=== PATIENT | female | born 1955 | race Caucasian/White ===

== ENCOUNTER 2020-10-03 09:54 | Outpatient (REF) | payer MEDICARE, MEDICAID, SELFPAY | END 2020-10-03 09:55 | disposition home or self-care (01) | LOC: HO.HAP 09:54 | DX: Z46.1 Encounter for fitting and adjustment of hearing aid (principal) | CPT/HCPCS: V5266 ==

== ENCOUNTER 2020-11-07 14:06 | Outpatient (REF) | payer MEDICARE, MEDICAID, SELFPAY ==
--- NOTE | 2020-11-07 | MM_ITS ---
EXAMINATION: MM SCREENING DIGITAL BREAST TOMOSYNTHESIS, BILATERAL CLINICAL INFORMATION: Screening. Asymptomatic. The lifetime risk of breast cancer based on the Tyrer-Cuzick Model is 6%. COMPARISON: Mammography: 03/12/2019, 03/06/2018, 01/23/2017 TECHNIQUE: Digital breast tomosynthesis is performed in both the craniocaudal and mediolateral oblique views along with computer-aided detection (CAD). Synthesized 2D images are generated from the tomosynthesis. FINDINGS: The breasts are almost entirely fatty (ACR BI-RADS breast composition Category a). Background stromal and fibroglandular densities are stable. There is a benign bulky calcification again seen anterior medial left breast. There are some rim calcifications mid outer right breast. There are no significant masses, abnormal calcifications, or other abnormalities. No significant changes from prior studies. MM/MM tomosynthesis screening BI IMPRESSION: No mammographic evidence of malignancy. ASSESSMENT: BI-RADS 2: Benign RECOMMENDATION: Routine annual mammography screening. This patient's information was entered into a reminder system with a target due date for their next mammogram.
== END 2020-11-07 14:07 | disposition home or self-care (01) ==
LOC: HO.MAMMO 14:06
DX: Z12.31 Encounter for screening mammogram for malignant neoplasm of breast (principal)
CPT/HCPCS: 77063; 77067

== ENCOUNTER 2021-01-29 08:54 | Outpatient (REF) | payer MEDICARE, MEDICAID, SELFPAY ==
--- NOTE | 2021-01-29 10:31 | MHC.AU.P13 ---
Adult Audiological Evaluation Date of Visit: 01/29/21 Ice Seller Used: Not Applicable Reason for Appointment: Audiologic re-evaluation due to question of change in hearing ability. It was noticed at the beginning of the appointment Mariah needed speech to be repeated frequently. Mariah was accompanied by her brother for today's appointment. Previous Hearing Test Results: Bilateral moderately-severe to profound sensorineural hearing loss. Ear History: History of Ear Wax Buildup: Both Ears Medical History: Medical History: Developmental Disorder/Delay High Blood Pressure Medical History: Cerebral Palsy, High Cholesterol, Mild Dementia, Vitamin B 12 Deficiency Allergies: Asprin, Ibuprofen, Morphine Medication List: Calcium, Lisinopril, Multivitamin, Simvastatin, Vitamin C, Vitamin D3 Hearing Instrument History- Right Ear: Plumbing Assembler Installer: Modulus Video Model: [employer] i1600 ITE Serial Number: [id number] Battery Size: 13 Repair Warranty: 06/07/2020 Dispensed By: [facility] Date of Fittin05/26/2017 Hearing Instrument History- Left Ear: Plumbing Assembler Installer: Spenser Model: [employer] i1600 ITE Serial Number: [id number] Battery Size: 13 Warranty: 06/07/2020 Dispensed By: [facility] Date of Fittin05/26/2017 Otoscopy: Right Ear: Small amount of non-occluding cerumen Left Ear: Small amount of non-occluding cerumen Tympanometry: Tympanometry performed due to: History of middle ear dysfunction Right Ear: Reduced Middle Ear Compliance (Type As) Left Ear: Reduced Middle Ear Compliance (Type As) Hearing Evaluation: Transducer(s) Used: Insert Earphones Bone Conduction Method: Conventional Audiometry Stimuli Used: Pure Tones Right Ear: Description of Hearing: Moderately-severe to profound sensorineural hearing loss Left Ear: Description of Hearing: Moderately-severe to severe sensorineural hearing loss Speech Recognition Threshold (SRT): Method Used: Monitored Live Voice Stimuli Used: Spondee Words Right Ear: 65 dB HL Left Ear: 65 dB HL Word Discrimination: Method: Monitored Live Voice Word Lists Used: NU-6 Right Ear: 56% at 95 dB HL Left Ear: 60% at 90 dB HL Comparison: Compared to the most recent evaluation: Hearing is stable. Recommendations: Audiological re-evaluation in one year. Hearing aid maintenance performed today. Sound quality of both hearing aids improved following hearing aid cleaning Diagnosis: Primary Diagnosis: H90.3 Bilateral Sensorineural Hearing Loss Services Performed: Comprehensive Audiological Evaluation (CPT 37212) Tympanometry (CPT 36171) Signature: Provider: Gary Trimble, [facility]-A
== END 2021-01-29 08:55 | disposition home or self-care (01) ==
LOC: HO.SH 08:54
PROVIDERS: Visit Provider Internal Medicine
DX: Z46.1 Encounter for fitting and adjustment of hearing aid (principal); H90.3 Sensorineural hearing loss, bilateral
CPT/HCPCS: 92557; 92567; 92593; 99499; V5266

== ENCOUNTER 2021-01-29 09:12 | Outpatient (REF) | payer MEDICARE, MEDICAID, SELFPAY | END 2021-01-29 09:13 | disposition home or self-care (01) | LOC: HO.HAP 09:12 | PROVIDERS: Visit Provider Internal Medicine | DX: Z46.1 Encounter for fitting and adjustment of hearing aid (principal) | CPT/HCPCS: V5267 ==

== ENCOUNTER 2021-03-09 14:50 | Outpatient (REF) | payer MEDICARE, MEDICAID, SELFPAY ==
--- NOTE | 2021-03-09 15:56 | MHC.AU.HFU ---
Hearing Instrument Follow-Up- Binaural Date of Visit: 03/09/21 Follow-Up Summary: Patient's left-sided Spenser [place] 1600 and her older left-sided Spenser S Series were dropped off, reporting they were . Changed wax traps and microphone covers. Cleaned battery contacts and shell. The [place] is working well after mainteneance. The older S Series is still not working after maintenance. Insurance will not cover the cost of repair for a back-up instrument. Recommendations: Lloyd Montgomery (patient's brother) was contacted. Discussed that the newer hearing aid is now working, but the older one is not. Discussed that insurance will not cover the cost of repair for a back-up instrument. He reports that he understands and is okay with not sending the older device for repair. He reports he will be in on Friday03/12/21 to tack picker the instruments. Diagnosis Code(s): Primary Diagnosis: H90.3 Bilateral Sensorineural Hearing Loss Signature: Provider: Gary Galvez, CCC-A
== END 2021-03-09 14:51 | disposition home or self-care (01) ==
LOC: HO.HAP 14:50
DX: Z13.89 Encounter for screening for other disorder (principal)

== ENCOUNTER 2021-07-26 15:37 | Outpatient (REF) | payer MEDICARE, MEDICAID, SELFPAY | END 2021-07-26 15:38 | disposition home or self-care (01) | LOC: HO.HAP 15:37 | PROVIDERS: PCP Internal Medicine; Visit Provider Internal Medicine | DX: Z46.1 Encounter for fitting and adjustment of hearing aid (principal); H90.3 Sensorineural hearing loss, bilateral | CPT/HCPCS: V5266 ==

== ENCOUNTER 2021-09-06 09:25 | Outpatient (REF) | payer MEDICARE, MEDICAID, SELFPAY | END 2021-09-06 09:26 | disposition home or self-care (01) | LOC: HO.HAP 09:25 | PROVIDERS: Visit Provider Internal Medicine | DX: Z13.89 Encounter for screening for other disorder (principal) ==

== ENCOUNTER 2021-09-17 09:50 | Outpatient (REF) | payer MEDICARE, MEDICAID, SELFPAY ==
--- NOTE | 2021-09-17 10:12 | MHC.AU.HFU ---
Hearing Instrument Follow-Up- Binaural Date of Visit: 09/17/21 Right Ear: Sheet Metal Lay Out Worker: Spenser Model: [place] i1600 ITE Serial Number: [id number] Repair Warranty: 09/17/2022 Battery Size: 13 Color: [place] Type of Wax Guard: HearClear Dispensed By: [facility] Date of Fittin05/26/2017 Left Ear: Sheet Metal Lay Out Worker: Spenser Model: [place] i1600 ITE Serial Number: [id number] Repair Warranty: 06/07/2020 Battery Size: 13 Color: [place] Type of Wax Guard: HearClear Dispensed By: [facility] Date of Fittin05/26/2017 Follow-Up Summary: Fit the right repair and programmed with the left aid. Patient doing well. Billed SOLARBRUSH $315.00 Recommendations: Recommendations: Hearing instrument follow-up or maintenance as needed. Please contact our clinic with any questions or concerns. Diagnosis Code(s): Primary Diagnosis: H90.3 Bilateral Sensorineural Hearing Loss Services Performed: Out of Warranty Repair by Sheet Metal Lay Out Worker: 1 Signature: Provider: Gary TrimbleA
== END 2021-09-17 09:51 | disposition home or self-care (01) ==
LOC: HO.HAP 09:50
PROVIDERS: Visit Provider Internal Medicine
DX: Z46.1 Encounter for fitting and adjustment of hearing aid (principal); H90.3 Sensorineural hearing loss, bilateral
CPT/HCPCS: V5014

== ENCOUNTER 2021-11-21 11:15 | Outpatient (REF) | payer MEDICARE, MEDICAID, SELFPAY ==
--- NOTE | ~2021-11-21 | MM_ITS ---
EXAMINATION: MM SCREENING DIGITAL BREAST TOMOSYNTHESIS, BILATERAL CLINICAL INFORMATION: Screening. Asymptomatic. The lifetime risk of breast cancer based on the Tyrer-Cuzick Model is 6%. COMPARISON: Mammography: 11/07/2020, 03/12/2019, 03/06/2018 TECHNIQUE: Digital breast tomosynthesis is performed in both the craniocaudal and mediolateral oblique views along with computer-aided detection (CAD). Synthesized 2D images are generated from the tomosynthesis. FINDINGS: The breasts are almost entirely fatty (ACR BI-RADS breast composition Category a). Background fibroglandular and stromal densities are similar to prior studies. There is no developing density. No abnormal calcifications. The axilla and skin contours are unremarkable. No significant changes. MM/MM tomosynthesis screening BI IMPRESSION: No mammographic evidence of malignancy. ASSESSMENT: BI-RADS 1: Negative RECOMMENDATION: Routine annual mammography screening. This patient's information was entered into a reminder system with a target due date for their next mammogram.
== END 2021-11-21 11:16 | disposition home or self-care (01) ==
LOC: HO.MAMMO 11:15
PROVIDERS: PCP Nurse Practitioner Family; Visit Provider Nurse Practitioner Family
DX: Z12.31 Encounter for screening mammogram for malignant neoplasm of breast (principal)
CPT/HCPCS: 77063; 77067

== ENCOUNTER 2021-12-25 09:51 | Outpatient (REF) | payer MEDICARE, MEDICAID, SELFPAY | END 2021-12-25 09:52 | disposition home or self-care (01) | LOC: HO.HAP 09:51 | PROVIDERS: Visit Provider Nurse Practitioner Family | DX: Z46.1 Encounter for fitting and adjustment of hearing aid (principal); H90.3 Sensorineural hearing loss, bilateral | CPT/HCPCS: V5266 ==

== ENCOUNTER 2021-12-25 09:52 | Outpatient (REF) | payer SELFPAY | END 2021-12-25 09:53 | disposition home or self-care (01) | LOC: HO.HAP 09:52 | PROVIDERS: Visit Provider Nurse Practitioner Family | DX: Z46.1 Encounter for fitting and adjustment of hearing aid (principal); H90.3 Sensorineural hearing loss, bilateral | CPT/HCPCS: V5267 ==

== ENCOUNTER 2022-03-18 13:22 | Outpatient (REF) | payer MEDICARE, MEDICAID, SELFPAY ==
--- NOTE | 2022-03-18 15:33 | MHC.AU.AHA ---
Adult Audiological Evaluation Date of Visit: 03/18/22 Reason for Appointment: Long-standing history of hearing loss. Patient arrives to determine if there has been a change in hearing. Previous Hearing Test Results: At this clinic on 01/29/2021- Moderately-severe to profound sensorineural hearing loss bilaterally Ear History: Recent Ear Pain: None Reported Recent Ear Infections: None Reported History of Ear Wax Buildup: Both Ears Medical History: Medical History: Developmental Disorder/Delay, High Blood Pressure, Cerebral Palsy, High Cholesterol, Mild Dementia, Vitamin B 12 Deficiency Allergies: Asprin, Ibuprofen, Morphine Hearing Instrument History- Right Ear: President: [employer] Model: [place] i1600 ITE Serial Number: [id number] Battery Size: 13 Repair Warranty: 09/17/2022 Dispensed By: [facility] Date of Fittin05/26/2017 Hearing Instrument History- Left Ear: President: [employer] Model: [place] i1600 ITE Serial Number: [id number] Battery Size: 13 Warranty: 06/07/2020 Dispensed By: [facility] Date of Fittin05/26/2017 Otoscopy: Right Ear: Minimal cerumen Left Ear: Minimal cerumen Tympanometry: Tympanometry performed due to: To assess integrity of the middle ear system Right Ear: Reduced Middle Ear Compliance (Type As) Left Ear: Reduced Middle Ear Compliance (Type As) Hearing Evaluation: Transducer(s) Used: Insert Earphones Method: Conventional Audiometry Stimuli Used: Pure Tones Right Ear: Description of Hearing: Severe to profound sensorineural hearing loss Left Ear: Description of Hearing: Overall severe sensorineural hearing loss Speech Recognition Threshold (SRT): Method Used: Monitored Live Voice Stimuli Used: Spondee Words Right Ear: 70 dBHL Left Ear: 65 dBHL Word Discrimination: Method: Recorded Lists Word Lists Used: W-22 Right Ear: 40% at 90 dBHL Left Ear: 40% at 90 dBHL Most Comfortable Level (MCL): Right Ear: 90 dBHL Left Ear: 90 dBHL Comparison: Compared to the most recent evaluation: Hearing is stable. Recommendations: Audiological re-evaluation in one year. See Hearing Aid Follow-Up note for more information. No programming changes made to the hearing aids today. Diagnosis: Primary Diagnosis: H90.3 Bilateral Sensorineural Hearing Loss Signature: Provider: Gary Galvez, [facility]
== END 2022-03-18 13:23 | disposition home or self-care (01) ==
LOC: HO.SH 13:22
PROVIDERS: Visit Provider Nurse Practitioner Family
DX: Z01.118 Encounter for examination of ears and hearing with other abnormal findings (principal); H90.3 Sensorineural hearing loss, bilateral
CPT/HCPCS: 92557; 92567; 92593

== ENCOUNTER 2022-05-21 13:19 | Outpatient (REF) | payer MEDICARE, MEDICAID, SELFPAY | END 2022-05-21 13:20 | disposition home or self-care (01) | LOC: HO.HAP 13:19 | PROVIDERS: Visit Provider Nurse Practitioner Family | DX: Z46.1 Encounter for fitting and adjustment of hearing aid (principal); H90.3 Sensorineural hearing loss, bilateral | CPT/HCPCS: V5266 ==

== ENCOUNTER 2022-10-15 10:21 | Outpatient (REF) | payer MEDICARE, MEDICAID, SELFPAY | END 2022-10-15 10:22 | disposition home or self-care (01) | LOC: HO.HAP 10:21 | PROVIDERS: Visit Provider Nurse Practitioner Family | DX: Z13.89 Encounter for screening for other disorder (principal) ==

== ENCOUNTER 2022-12-11 11:10 | Outpatient (REF) | payer MEDICARE, MEDICAID, SELFPAY ==
--- NOTE | ~2022-12-11 | MM_ITS ---
EXAMINATION: MM SCREENING DIGITAL BREAST TOMOSYNTHESIS, BILATERAL CLINICAL INFORMATION: Screening. Asymptomatic. The lifetime risk of breast cancer based on the Tyrer-Cuzick Model is 9%. COMPARISON: Mammography: 11/21/2021, 11/07/2020, 03/12/2019 TECHNIQUE: Digital breast tomosynthesis is performed in both the craniocaudal and mediolateral oblique views along with computer-aided detection (CAD). Synthesized 2D images are generated from the tomosynthesis. FINDINGS: The breasts are almost entirely fatty (ACR BI-RADS breast composition Category a). There are no significant masses, abnormal calcifications, or other abnormalities. Background stromal and fibroglandular densities are unremarkable. No architectural abnormality or developing density. The axilla and skin contours are unremarkable. MM/MM tomosynthesis screening BI IMPRESSION: No mammographic evidence of malignancy. ASSESSMENT: BI-RADS 1: Negative RECOMMENDATION: Routine annual mammography screening. This patient's information was entered into a reminder system with a target due date for their next mammogram.
== END 2022-12-11 11:11 | disposition home or self-care (01) ==
LOC: HO.MAMMO 11:10
PROVIDERS: Visit Provider Nurse Practitioner Family
DX: Z12.31 Encounter for screening mammogram for malignant neoplasm of breast (principal)
CPT/HCPCS: 77063; 77067

== ENCOUNTER 2023-03-06 09:11 | Outpatient (REF) | payer MEDICARE, MEDICAID, SELFPAY | END 2023-03-06 09:12 | disposition home or self-care (01) | LOC: HO.HAP 09:11 | PROVIDERS: Visit Provider Nurse Practitioner Family | DX: Z46.1 Encounter for fitting and adjustment of hearing aid (principal); H90.3 Sensorineural hearing loss, bilateral | CPT/HCPCS: V5266 ==

== ENCOUNTER 2023-08-08 09:53 | Outpatient (REF) | payer MEDICARE, MEDICAID, SELFPAY | END 2023-08-08 09:54 | disposition home or self-care (01) | LOC: HO.HAP 09:53 | PROVIDERS: Visit Provider Nurse Practitioner Family | DX: Z46.1 Encounter for fitting and adjustment of hearing aid (principal); H90.3 Sensorineural hearing loss, bilateral | CPT/HCPCS: V5266 ==

== ENCOUNTER 2023-08-08 09:56 | Outpatient (REF) | payer SELFPAY | END 2023-08-08 09:57 | disposition home or self-care (01) | LOC: HO.HAP 09:56 | PROVIDERS: Visit Provider Nurse Practitioner Family | DX: H91.91 Unspecified hearing loss, right ear (principal) | CPT/HCPCS: V5267 ==

== ENCOUNTER 2023-12-10 08:22 | Outpatient (REF) | payer MEDICARE, MEDICAID, SELFPAY | END 2023-12-10 08:23 | disposition home or self-care (01) | LOC: HO.HAP 08:22 | PROVIDERS: Visit Provider Nurse Practitioner Family | DX: Z13.89 Encounter for screening for other disorder (principal) ==

== ENCOUNTER 2023-12-11 13:09 | Outpatient (REF) | payer MEDICARE, MEDICAID, SELFPAY | END 2023-12-11 13:10 | disposition home or self-care (01) | LOC: HO.HAP 13:09 | PROVIDERS: Visit Provider Nurse Practitioner Family | DX: Z46.1 Encounter for fitting and adjustment of hearing aid (principal); H90.3 Sensorineural hearing loss, bilateral | CPT/HCPCS: V5266 ==

== ENCOUNTER 2023-12-31 08:06 | Outpatient (REF) | payer MEDICARE, MEDICAID, SELFPAY ==
--- NOTE | ~2023-12-31 | MM_ITS ---
EXAMINATION: MM SCREENING DIGITAL MAMMOGRAPHY, RIGHT CLINICAL INFORMATION: Screening. Asymptomatic. COMPARISON: Mammography: This study is compared with the prior examinations dating back to 2018. TECHNIQUE: Digital mammography is performed in craniocaudal and mediolateral oblique views along with computer-aided detection (CAD). Only of the right breast was imaged. FINDINGS: There are scattered areas of fibroglandular density (ACR BI-RADS breast composition Category b). There are no significant masses, abnormal calcifications, or other abnormalities in the right breast. The patient was unable to finish her screening mammogram and therefore no images of the left breast were obtained. When the patient is able to, she should return for the completion of her mammogram. MM/MM screening mammo unilat RT IMPRESSION: No mammographic signs of malignancy in the right breast. Incomplete screening mammogram without images of the left breast. The patient to return to complete her study she is able. ASSESSMENT: BI-RADS BI-RADS 0 - Incomplete: Needs additional Imaging. RECOMMENDATION: The patient should return to have left screening mammogram views performed. Radiology department staff will contact the patient for additional imaging. Additional Imaging required This patient's information was entered into a reminder system with a target due date for their next mammogram.
== END 2023-12-31 08:07 | disposition home or self-care (01) ==
LOC: HO.MAMMO 08:06
PROVIDERS: Visit Provider Nurse Practitioner Family
DX: Z12.31 Encounter for screening mammogram for malignant neoplasm of breast (principal)
CPT/HCPCS: 77063; 77067

== ENCOUNTER → 2023-12-31 08:30 | Outpatient (BNV) | payer MEDICARE, MEDICAID, SELFPAY | PROVIDERS: Visit Provider Radiology Diagnostic Radiology | DX: Z12.31 Encounter for screening mammogram for malignant neoplasm of breast (principal) | CPT/HCPCS: 77063; 77067 ==

== ENCOUNTER 2024-02-03 08:28 | Outpatient (REF) | payer MEDICARE, MEDICAID, SELFPAY ==
--- NOTE | ~2024-02-03 | MM_ITS ---
EXAMINATION: MM SCREENING DIGITAL BREAST TOMOSYNTHESIS, LEFT CLINICAL INFORMATION: Screening. Asymptomatic. The patient presents for completion screening mammogram originally obtained on 12/31/2023. At that time, the patient was unable to tolerate completion of the study. COMPARISON: Mammography: This study is compared with prior exams dating back to TECHNIQUE: Digital breast tomosynthesis is performed in both the craniocaudal and mediolateral oblique views along with computer-aided detection (CAD). Synthesized 2D images are generated from the tomosynthesis. FINDINGS: The breasts are almost entirely fatty (ACR BI-RADS breast composition Category a). There are no significant masses, abnormal calcifications, or other abnormalities. A bilobed, coarse, benign calcification is present in the medial aspect of the left breast. MM/MM tomosynthesis screening LT IMPRESSION: No mammographic evidence of malignancy. ASSESSMENT: BI-RADS BI-RADS 2 - Benign Findings RECOMMENDATION: Routine annual mammography screening. 1 year F/U This examination should not preclude the clinical evaluation of a suspicious palpable abnormality. This patient's information was entered into a reminder system with a target due date for their next mammogram.
== END 2024-02-03 08:29 | disposition home or self-care (01) ==
LOC: HO.MAMMO 08:28
PROVIDERS: PCP Nurse Practitioner Family; Visit Provider Nurse Practitioner Family
DX: Z12.31 Encounter for screening mammogram for malignant neoplasm of breast (principal)
CPT/HCPCS: 77063; 77067

== ENCOUNTER → 2024-02-03 08:45 | Outpatient (BNV) | payer MEDICARE, MEDICAID, SELFPAY | PROVIDERS: PCP Nurse Practitioner Family; Visit Provider Radiology Diagnostic Radiology | DX: Z12.31 Encounter for screening mammogram for malignant neoplasm of breast (principal) | CPT/HCPCS: 77063; 77067 ==

== ENCOUNTER 2024-05-04 08:57 | Outpatient (REF) | payer MEDICARE, MEDICAID, SELFPAY | END 2024-05-04 08:58 | disposition home or self-care (01) | LOC: HO.HAP 08:57 | PROVIDERS: Visit Provider Nurse Practitioner Family | DX: Z46.1 Encounter for fitting and adjustment of hearing aid (principal); H90.3 Sensorineural hearing loss, bilateral | CPT/HCPCS: V5266 ==

== ENCOUNTER 2024-07-30 12:22 | Outpatient (REF) | payer MEDICARE, MEDICAID, SELFPAY ==
--- NOTE | 2024-07-30 13:43 | MHC.AU.HA3 ---
Hearing Instrument Follow-Up- Binaural Date of Visit: 07/30/24 Right Ear: Make, Model, Color, Serial Number: [id number] Refuse Laborer Repair Warranty: 09/17/2022 Battery Size: 13 Type of Wax Guard: HearClear Dispensed By: [facility] Date of Fittin05/26/2017 Left Ear: Make, Model, Color, Serial Number: [id number] Refuse Laborer Repair Warranty: 06/07/2020 Battery Size: 13 Ross Lift Operator/Slim Tube: Type of Wax Guard: HearClear Dispensed By: [facility] Date of Fittin05/26/2017 Follow-Up Summary: Cleaned and checked aids. Right has crack with tape on it. Both wax guards clogged. Replaced wax guards. Replaced twyla covers. Listening check positive. Left tape on the right aid. Recommended new amplification vs. repair. Mariah is apprehensive about new aids, reporting that she likes her hearing aids. Advised we can get similar style and encouraged to try. Her brother is in agreement with pursuing new amplification. Return for hearing aid consult and impressions. Recommendations: Recommendations (Other): Return as scheduled. Diagnosis Code(s): Primary Diagnosis: H90.3 Bilateral Sensorineural Hearing Loss Signature: Provider: Matilde Moreland, [facility]
== END 2024-07-30 12:23 | disposition home or self-care (01) ==
LOC: HO.SH 12:22
PROVIDERS: Visit Provider Nurse Practitioner Family
DX: Z01.118 Encounter for examination of ears and hearing with other abnormal findings (principal); Z46.1 Encounter for fitting and adjustment of hearing aid; H90.3 Sensorineural hearing loss, bilateral
CPT/HCPCS: 92552; 92556; 92593; 99499

== ENCOUNTER 2024-08-23 15:07 | Outpatient (REF) | payer MEDICARE, MEDICAID, SELFPAY ==
--- NOTE | 2024-08-23 15:43 | MHC.AU.HA1 ---
Hearing Aid Evaluation Date of Visit: 08/23/24 Historical Information: Description of Hearing: Severe sensorineural hearing loss. Current personal amplification information, if applicable: Mindy [place] i1600 ITE binaural. Summary: Mariah is here with her brother Lloyd. Recently seen for audiological evaluation. New amplification recommended as her right hearing aid is cracked and held together with tape, aids are out of warranty. New technology recommended to facilitate improved communication. Mariah would like to stay with the same style hearing aid she is comfortable handling. Discussed R vs. batteries. Lloyd reports rechargeable would be nice, he changes the batteries for her weekly and picks up batteries for her. Small scab noted in timothy Ad, may be from tape scratching. Impressions taken without incidence Au. Hearing Aid Prescription: Based on the individual?s shared listening needs, communication environments, dexterity, desire for connectivity, and personal preferences, the following prescription for amplification has been made: Right ear: Make, Model, Color: MINDY.CHRISTAL AI.20.HS.R Battery Size: Rechargeable Left ear: Make, Model, Color: MINDY.CHRISTAL AI.20.HS.R Battery Size: Rechargeable Plan of Care: Patient wishes to purchase hearing aids as prescribed Action Taken/Action Needed: E[place]old Impressions Taken Hearing Instrument Fitting to be scheduled when materials arrive Primary Diagnosis: H90.3 Bilateral Sensorineural Hearing Loss Signature: Provider: Matilde Moreland, [facility]
== END 2024-08-23 15:08 | disposition home or self-care (01) ==
LOC: HO.HAP 15:07
PROVIDERS: Visit Provider Internal Medicine
DX: Z46.1 Encounter for fitting and adjustment of hearing aid (principal); H90.3 Sensorineural hearing loss, bilateral
CPT/HCPCS: 92591; V5275

== ENCOUNTER 2024-09-30 10:09 | Outpatient (REF) | payer MEDICARE, MEDICAID, SELFPAY ==
--- NOTE | 2024-09-30 12:34 | MHC.AU.HA2 ---
Hearing Instrument Fitting- Adult- Binaural Date of Visit: 09/30/24 Hearing Instruments Dispensed: Right Ear: Franki, Model, Color, Serial Number: Spenser ALARCON 20 HS-R SN: [id number] Color: [place] Fur Weigher Repair Warranty: 09/26/2027 Fur Weigher Loss and Damage Warranty: 09/26/2027 [facility] Service Plan: 09/30/2025 Battery Size: Rechargeable Type of Wax Guard: HearClear Left Ear: Franki, Model, Color, Serial Number: Spenser ALARCON 20 HS-R SN: [id number] Color: [place] Fur Weigher Repair Warranty: 09/26/2027 Fur Weigher Loss and Damage Warranty: 09/26/2027 [facility] Service Plan: 09/30/2025 Battery Size: Rechargeable Type of Wax Guard: HearClear Accessories/Assistive Technology: Spneser Custom Turner In SN: [id number] Summary of Fitting: Accompanied by brother Lloyd. Performed feedback analyzer and real ear measures. Comfortable at real ear settings. Discussed rechargeability, practiced putting on/off smelter charger. Reviewed cleaning, changing wax guards. As a long-time DURAN user, Jason were otherwise familiar with general maintenance. No push button or volume wheel - Explained only way to turn off is on the smelter charger. Scheduled follow up; however, may cancel if all is well. Recommendations: A hearing instrument follow-up was scheduled. Diagnosis Code(s): Primary Diagnosis: H90.3 Bilateral Sensorineural Hearing Loss Signature: Provider: Matilde Chandra, [facility]
== END 2024-09-30 10:10 | disposition home or self-care (01) ==
LOC: HO.HAP 10:09
PROVIDERS: Visit Provider Internal Medicine
DX: Z46.1 Encounter for fitting and adjustment of hearing aid (principal); H90.3 Sensorineural hearing loss, bilateral
CPT/HCPCS: V5011; V5020; V5160; V5259

== ENCOUNTER 2025-03-18 07:57 | Outpatient (REF) | payer MEDICARE, MEDICAID, SELFPAY ==
--- OUTSIDE RECORDS SUMMARY | 2025-03-18 08:01 | XMS_ITS | Patient Health Record ---
Author Organization [facility] [place] Address [address] [place] [address] Care Team Providers Care Ruling Machine Feeder Name Role Phone Kalpana Dodge Primary Care Provider Unavail able Mary Arreola Unavailable [phone] Allergies Allergen (clinical drug ingredient) Drug/Non Drug Allergy documented on EMR Reaction Allergy Type Onset Date Status morphine Morphine Unknown Drug Allergy Active Reason For Referral No Information Medications Medication SIG (Take, Route, Frequency, Duration) Notes Start Date End Date Status Simvastatin 40 MG 1 tablet in the even ing Orally Once a day for 30 day(s) Active Doxycycline Monohydrate 100 MG 1 capsule Orally Twice a day Active Furosemide 20 MG 1 tablet Orally Once a day for 30 day(s) Active Lisinopril 5 MG 1 tablet Orally Once a day for 30 day(s) Active Terbinafine HCl 1 % 1 application Human Resource Manager ally Once a day for 7 day(s) Active Social History Tobacco Use: Social History Observation Description Date Details (start date - stop date) Never Smoker NA - NA Tobacco Use/Smoking Question Answer Notes Are you a: nonsmoker Additional Findings: Tobacco Non-User Current no n-smoker Alcohol Screen Question Answer Notes Did you have a drink containing alcohol in the p ast year? No Points 0 Interpretation Negative Tobacco use other than smoking: Question Answer Notes Are you an other tobacco user? No Plan Of Treatment No Information Insurance Providers Payer Name Payer Address Payer Phone Subscriber Number Group Number Insured Name Patient Relationship to Insured Coverage Start Date Coverage End Date Medicare National [employer] [address] [facility] [place] [address] [phone] [id number] Mariah Montgomery Self - patient is the insured Medical (General) History Medical History History ICD Code Cancer High blood pressure Measles Surgical History Surgery Date(Month/Year) appendectomy cancer, nose 05/18/2021
== END 2025-03-18 07:58 | disposition home or self-care (01) ==
LOC: HO.MAMMO 07:57
PROVIDERS: PCP Nurse Practitioner Family; Visit Provider Nurse Practitioner Family
DX: Z12.31 Encounter for screening mammogram for malignant neoplasm of breast (principal)
CPT/HCPCS: 77063; 77067

== ENCOUNTER → 2025-03-18 08:15 | Outpatient (BNV) | payer MEDICARE, MEDICAID, SELFPAY | PROVIDERS: PCP Nurse Practitioner Family; Visit Provider Internal Medicine | DX: Z12.31 Encounter for screening mammogram for malignant neoplasm of breast (principal) | CPT/HCPCS: 77063; 77067 ==